=== PATIENT | female | born 1995 | race American Indian/Alaskan Native ===

== ENCOUNTER 2017-03-25 20:47 | Emergency (ER) | payer MEDICARE ==
[2017-03-25 21:15] VITALS: BP 99/57
--- NOTE | 2017-03-25 22:13 | XRay Report ---
FINAL REPORT EXAM: XR WRIST 3+V RT HISTORY: right wrist pain COMPARISON: None available. FINDINGS: Four views of the right wrist obtained. Normal alignment of the carpal bones. Radiocarpal joint space preserved. No acute fracture dislocation. IMPRESSION: No acute bony abnormality.
--- NOTE | 2017-03-25 22:44 | Emergency Department Report ---
Upper Extremity - HPI Chief Complaint: Extremity Injury, Upper Stated Complaint: RT WRIST PAIN Time Seen by Provider: 03/25/17 21:43 Upper Extremity: Right Wrist (pain with movement) Occurred When: Today Mechanism: Fall Severity: mild Symptoms: Yes Pain with Movement, No Deformity, No Limited Range of Movement, No Numbness, No Weakness, No Swelling, No Bruising/Ecchymosis, No Laceration or Abrasion Other History: This is a 21 y.o. deaf female, mother is interperter. Patient states she fell around 1930 while skating. She fell back and broke fall with right hand. She is able to move finger and wrist. Pain is 4/10 on pain scale. Patient denies numbness, tingling, swelling, bruising, or derformity. ED Review of Systems ROS: Stated complaint: RT WRIST PAIN Other details as noted in HPI Constitutional: no symptoms reported, see HPI. denies: chills, diaphoresis, fever, malaise, weakness Respiratory: no symptoms reported, see HPI. denies: cough, orthopnea, shortness of breath, SOB with exertion, SOB at rest, stridor, wheezing Cardiovascular: as per HPI. denies: chest pain, palpitations, dyspnea on exertion, orthopnea, edema, syncope, paroxysmal nocturnal dyspnea Musculoskeletal: as per HPI, myalgia. denies: back pain, joint swelling, arthralgia Skin: as per HPI. denies: rash, lesions, change in color, change in hair/nails , pruritus Neurological: as per HPI. denies: headache, weakness, numbness, paresthesias, confusion, abnormal gait, vertigo Psychiatric: as per HPI. denies: anxiety, depression, auditory hallucinations, visual hallucinations, homicidal thoughts, suicidal thoughts ED Past Medical Hx - Past Medical History Previous Medical History?: No Additional medical history: hearing impaired - Surgical History Additional Surgical History: back surgery as a baby - Social History Smoking Status: Never Smoker - Medications Home Medications: Home Medications Medication Instructions Recorded Confirmed Last Taken Type Clindamycin [Clindamycin CAP] 300 mg PO Q8H #30 cap 01/20/16 Unknown Rx Ibuprofen [Motrin 400 MG tab] 400 mg PO Q8H PRN #20 tablet 03/25/17 Unknown Rx Upper Extremity Exam - Exam General: Vital signs noted. No distress. Alert and acting appropriately. Head and Torso: No HEENT Abnormality, No Neck Tenderness, No Chest/Lungs Abnormality, No Abdominal Tenderness, No Back Tenderness Shoulder Exam: Yes Normal Range of Motion in Shoulder, No Shoulder Tenderness, No Clavicle Tenderness, No Shoulder Deformity, No AC Joint Tenderness Arm Exam: No Arm/Humerus Tenderness, No Arm Deformity Elbow: Yes Normal Range of Motion in Elbow, No Elbow Tenderness, No Elbow Deformity Forearm: No Forearm Tenderness, No Forearm Deformity, No Pain with Pronation, No Pain with Supination Wrist: Yes Wrist Tenderness, Yes Normal ROM in Wrist, Yes Snuffbox Tenderness, No Wrist Deformity, No Pain with Axial Thumb Compression Hand: Yes Normal ROM in Digit(s), No Hand Tenderness, No Hand Deformity, No Digit Tenderness, No Digit(s) Deformity, No Tendon Dysfunction CMS Exam: Yes Normal Distal Pulses, Yes Normal Capillary Refill, Yes Normal Distal Sensation, No Broken Skin ED Course Vital Signs 03/25/17 03/25/17 20:52 21:11 Temperature 99.0 F 99.0 F Pulse Rate 84 85 Respiratory 18 18 Rate Blood Pressure 87/51 99/57 O2 Sat by Pulse 100 100 Oximetry ED Medical Decision Making - Radiology Data Radiology results: image reviewed FINDINGS: Four views of the right wrist obtained. Normal alignment of the carpal bones. Radiocarpal joint space preserved. No acute fracture dislocation. IMPRESSION: No acute bony abnormality. Critical care attestation.: If time is entered above; I have spent that time in minutes in the direct care of this critically ill patient, excluding procedure time. ED Disposition Clinical Impression: Muscle strain of right wrist Qualifiers: Encounter type: initial encounter Qualified Code(s): S66.911A - Strain of unspecified muscle, fascia and tendon at wrist and hand level, right hand, initial encounter Disposition: TO HOME OR SELFCARE Is pt being admited?: No Does the pt Need Aspirin: No Condition: Stable Additional Instructions: Symptomatic treatment was discussed. Use ibuprofen as needed for pain. Follow up with primary physician if continued pain. Return to ED if pain uncontrolled, numbness or tingling, or other concerns. Prescriptions: Ibuprofen [Motrin 400 MG tab] 400 mg PO Q8H PRN #20 tablet PRN Reason: Pain Referrals: ARMINDA CONCEPCION MD [Primary Care Provider] - 3-5 Days [facility] [Outside] - 3-5 Days Forms: Work/School Release Form(ED) Time of Disposition: 22:47 Print Language: SINHAL[place]
== END 2017-03-25 23:21 | disposition home or self-care (01) ==
LOC: ED 20:47
DX: S66.811A Strain of other specified muscles, fascia and tendons at wrist and hand level, right hand, initial encounter (principal); V00.131A Fall from skateboard, initial encounter; Y93.89 Activity, other specified; Y92.89 Other specified places as the place of occurrence of the external cause; Y99.8 Other external cause status